=== PATIENT | female | born 1980 | race Caucasian/White ===

== ENCOUNTER 2025-02-02 11:58 | Emergency (ER) | payer OTHER, SELFPAY ==
[2025-02-02 12:02] VITALS: BP 135/90; PULSE 86; TEMP 36.4; O2SAT 97; BMI 36.0
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
--- NOTE | 2025-02-02 12:15 | ECG_ITS ---
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
[2025-02-02 12:36] LABS: Hematocrit 45.3 % (36.0-48.0); Hemoglobin 15.0 g/dL (12.0-16.0); Immature Granulocytes Abs Auto 0.10 10^3/uL (0.00-0.03); Immature Granulocytes Pct Auto 0.7 % (0.0-0.5); Lymphocytes Absolute Auto 2.8 10^3/uL (1.2-3.8); Mean Corpuscular HGB Conc 33.1 g/dL (29.9-35.2); Mean Corpuscular Hemoglobin 30.6 pg (26.7-34.0); Mean Corpuscular Volume 92.4 fL (81.0-99.0); Platelet Count 209 10^3/uL (150-450); Red Blood Count 4.90 10^6/uL (4.20-5.40); White Blood Count 15.3 10^3/uL (4.0-11.0)
[2025-02-02 12:44] LABS: Alanine Aminotransferase 24 U/L (14-59); Albumin Globulin Ratio 1.1; Albumin Level 3.5 g/dL (3.4-5.0); Alkaline Phosphatase 85 U/L (46-116); Anion Gap 12.2; Aspartate Amino Transferase 11 U/L (15-37); Blood Urea Nitrogen 11.0 mg/dL (7.0-18.0); Calcium 9.3 mg/dL (8.5-10.1); Carbon Dioxide 26.8 mmol/L (21.0-32.0); Chloride 104 mmol/L (98-107); Estimated GFR (African America >60 (>=60 mL/min/1.73m^2); Estimated GFR (Non-African Ame >60 (>=60 mL/min/1.73m^2); Globulin 3.3 g/dL; Glucose 129 mg/dL (74-106); Potassium 4.0 mmol/L (3.5-5.1); Sodium 139 mmol/L (136-145); Total Protein 6.8 g/dL (6.4-8.2)
[2025-02-02 15:20] VITALS: BP 150/105; PULSE 66; O2SAT 98
== END 2025-02-02 15:23 | disposition home or self-care (01) ==
PROVIDERS: Physician Assistant; Emergency Provider Emergency Medicine
DX: Z04.1 Encounter for examination and observation following transport accident (principal); R07.89 Other chest pain; M54.6 Pain in thoracic spine; Z79.899 Other long term (current) drug therapy
CPT/HCPCS: 36415; 70450; 71260; 72125; 76376; 80048; 80053; 80320; 84484; 84703; 85025; 93005; 99285; Q9967